=== PATIENT | male | born 1975 | race Caucasian/White ===

== ENCOUNTER 2024-08-23 00:14 | Emergency (ER) | payer MEDICARE, MEDICAID ==
[~2024-08-23] VITALS: Ht 177.8 cm; Wt 56.9 kg
[2024-08-23 00:19] VITALS: RESP 15; TEMP 96.8
--- NOTE | 2024-08-23 03:58 | Physician Documentation ---
History of Present Illness ~ General Chief Complaint: General Stated Complaint: DIZZY Time Seen by MD: 03:56 OK to notify your PCP?: Yes Source: patient, RN/MD, RN notes reviewed, old records Mode of Arrival: POV, Ambulatory Exam Limitations: no limitations History of Present Illness Initial Comments 49 year old male presents complaining of dizziness, lightheadedness, and a high- pitched ringing in his ears beginning in the last 24 hours. Patient reports symptoms increase with movement and opening of his eyes. He further describes his symptoms as if he has a loss of equilibrium. He also reports he feels as if he is being "stalked" by people. Approximately 2.5 weeks ago patient finished a course of antibiotics that was prescribed for "chest congestion." Medication Reconciliation Allergies: Coded Allergies: amoxicillin (Verified Allergy, Unknown, 08/23/24) Scheduled Meclizine HCl (Meclizine HCl), 1 TAB PO Q8H Past Medical History Past Medical History: BPH, Chronic Back Pain Past Surgical History: noncontributory, orthopedic surgeries Smoking Status: Current every day smoker Alcohol Use: Occasionally Lives In: Home Review of Systems All Other Systems at this time: Reviewed and Negative ROS As stated above in the HPI, otherwise all systems are reviewed and negative. Physical Exam Physical Exam Vital Signs: RN Vital Signs have been reviewed: Yes, Temperature: 96.8, Source: Temporal, Heart Rate: 66, Respiratory Rate: 15, BP: 142/98, Pulse Oximetry: 98, Weight: 56.850 Pulse Oximetry Reflects: adequate oxygenation Physical Exam General: The patient is well developed, well nourished, nontoxic appearing and is in no acute distress. Skin: [place], warm and dry with no rashes. HEENT: + horizontal nystagmus. Bilateral ears: Increased wax in the left ear. Bilateral TMs and external auditory canals otherwise normal. Otherwise: Head was normocephalic and atraumatic. Chest: Clear to auscultation bilaterally without wheezes, rales or rhonchi. No accessory muscle use. No dullness to percussion. Heart: Rate regular and rhythmic. S1, S2. No murmurs. Palpation of the chest wall was normal. No rubs or thrills. Extremities: No cyanosis, clubbing or edema. The patient moves all e xtremities. Pulses were equal and symmetric. Neurologic: Motor and sensation grossly intact. Cranial nerves II-XII grossly intact. A & O x4. Psychologic: Normal mood and affect. No agitation. Progress Results/Orders Reviewed/noted all lab results: Yes Results/Orders Orders - JAIR BENEDICT MD Electrocardiogram (08/23/24 04:13) Completed Orders - JAIR BENEDICT MD Meclizine Tablets (Antivert Tablet) (08/23/24 04:05) Electrocardiogram (08/23/24 04:13) Medications Received in ER Medications (Trade) Dose Ordered Sig/Cruz Route PRN Reason Start Time Stop Time Status Last Admin Dose Admin (Antivert tablet) 50 mg ONCE ONCE PO 08/23/24 04:05 08/23/24 04:06 DC 08/23/24 04:15 50 MG Vital Signs 08/23/24 08/23/24 00:19 04:48 Temp 96.8 Pulse 66 86 Resp 15 B/P (MAP) 142/98 143/98 Pulse Ox 98 98 Re-Evaluation Re-Evaluation : Re-Evaluation: Improved Progress Patient was seen and examined. Patient was given reassurance. Patient had significant dizziness initially but no neurological symptoms such as weakness numbness difficulty with speech. Patient has had some issues with his right ear pending MRI. Patient received meclizine symptoms seemed to be resolving he ambulated without any difficulty presented with classic peripheral vertigo like symptoms. Patient was then discharged home. Patient should follow up with his physician for follow up. Return if there was any worsening symptoms or neurological symptoms we discussed peripheral versus central vertigo Medical Decision Making Additional info obtained from: old records Departure Time of Disposition: 04:38 Disposition: HOME / SELF CARE / HOMELESS Impression: Primary Impression: Peripheral vertigo Qualified Codes: H81.399 - Other peripheral vertigo, unspecified ear Condition: Stable Discharge Instructions: Vertigo, [id number] Additional Instructions: Take meclizine as needed. Follow up with your regular doctor in the next week. Return to the ER for new or worsening symptoms or other concerns. Prescriptions Meclizine HCl (Meclizine HCl) 25 Mg Tablet 1 TAB PO Q8H for 15 Days, #40 TAB Prov: JAIR BENEDICT MD 08/23/24 Education Educated: Patient Educated regarding: diagnosis, treatment, need for follow up Signature Scribe Signature: Scribed for Jair Benedict MD by Angel Benítez . 08/23/24 04:12 Attestation: The note accurately reflects work and decisions made by me.Jair Benedict MD 08/23/24 03:58 JAIR BENEDICT MD August 23, 2024 03:58 ANGEL JOYCE August 23, 2024 04:24
[2024-08-23] MEDS ORDERED: MECL-302 PO (04:05)
[2024-08-23] MEDS: meclizine 12.5mg tablet PO ONE (04:15)
--- NOTE | 2024-08-23 04:36 | ELECTROCARDIOGRAPH REPORT ---
[facility] Test Date: 2024-08-23 Test Time: 04:33:54 Pat Name: DIAZ MCLAIN Department: [facility]- Patient ID: [facility]-[id number] Room: Gender: M [facility] Nurse: : [id number] Requested By: BARNEY BENEDICT Order Number: [id number] Reading MD: Dr. Barney Benedict Measurements Intervals [place] Rate: 53 P: 55 [place]: 139 QRS: 95 QRSD: 87 T: 52 QT: 453 QTc: 426 Interpretive Statements Sinus bradycardia Borderline right axis deviation Electronically Signed On 08-23-2024 4:36:[address] Barney Benedict Please click the below link to view image of tracing.
[2024-08-23 04:48] VITALS: BP 143/98; PULSE 86; O2SAT 98
[2024-08-24] MEDS ORDERED: FINA5TAB11 PO (20:12)
[2024-08-24] MEDS ORDERED: FLUT12AE5 INH (20:12)
[2024-08-24] MEDS ORDERED: TAMS-55 PO (20:12)
[2024-08-24] MEDS ORDERED: TAMSULOSIN (20:12)
[2024-08-24] MEDS ORDERED: TIZA-205 PO (20:12)
[2024-08-24] MEDS ORDERED: DICL-212 PO (20:12)
[2024-08-24] MEDS ORDERED: FLUT16SP26 (20:12)
[2024-08-24] MEDS ORDERED: BENZ200C53 (20:12)
[2024-08-25] MEDS ORDERED: MECL-302 PO (23:09)
[2024-08-25] MEDS ORDERED: BENZ-38 PO (23:12)
[2024-08-25] MEDS ORDERED: FLUT16SP BOTHNARES (23:12)
== END 2024-08-23 04:51 | disposition home or self-care (01) ==
LOC: ER 00:15
DX: H81.393 Other peripheral vertigo, bilateral (principal); G89.29 Other chronic pain; M54.9 Dorsalgia, unspecified; F17.200 Nicotine dependence, unspecified, uncomplicated; Z72.89 Other problems related to lifestyle; Z98.890 Other specified postprocedural states
CPT/HCPCS: 93005; 99283; J8597